=== PATIENT | female | born 1985 | race Caucasian/White ===

== ENCOUNTER 2020-03-09 13:41 | Observation (INO) | payer MEDICAID, SELFPAY ==
[2020-03-09 13:44] VITALS: BP 131/99; PULSE 96; RESP 15; TEMP 36.7; O2SAT 98; BMI 25.0
--- NOTE | 2020-03-09 13:59 | ED.VISSUMM ---
- ER Visit Summary Date of Service: 03/09/20 Chief Complaint: [Requesting detox from heroin] History of Present Illness: The patient is a 34 F [presents the emergency department requesting detox from heroin. Patient states that she has been using for the last 6 months. Patient last used this morning. Patient states that prior to 6 months ago she had been on Suboxone for about a year and a half. Patient states that she just cannot do it anymore and would like help. She denies feeling suicidal or homicidal. Denies recent illness other than when she withdraws from the heroin she feels hot and cold chills and sweats as well as gets nausea and diarrhea. Patient otherwise has no medical history.] Physical Examination: [HEENT-PERRLA, EOMI. Cranial nerves II through XII grossly intact. TMs clear. Mucous membranes moist. No adenopathy. Cardiovascular-regular rate and rhythm without murmur or ectopy Lungs-clear to auscultation, chest wall stable without crepitus or subcu emphysema Abdomen-normoactive bowel sounds, soft, nontender, no rebound or rigidity, no peritoneal signs. Extremities-intact ?4, normal range of motion, normal pulses. Patient is noted to have track gillis to upper and lower extremities. Several of the injection sites have surrounding erythema localized evidence of cellulitis. No definite abscess is noted.] Test Results: [CBC with differential obtained showed a white count 17.9, hemoglobin 10.6, hematocrit 33, platelets 280. Chemistries unremarkable. LFTs unremarkable. Urine tox screen ordered and pending.] Emergency Department Course and Treatment: [IV line was tablets. Patient was started on Unasyn 3 g IV.] Treatment Plan: [Admit] Disposition: [Admit] Impression: [Admit for request for detox from heroin Cellulitis bilateral upper extremities-localized] This note was generated with Taxifyation software. It may contain incorrect words, spelling, and punctuation that were not noted in review of the chart prior to signing
[2020-03-09 14:33] LABS: Absolute Neutrophil Count 16.2 X10^3/uL (2.0-7.7); Basophil# 0.04 X10^3/uL; Basophil% 0.2 % (0-1); Eosinophil# 0.03 X10^3/uL; Eosinophils% 0.2 % (0-5); Hematocrit 33.3 % (37-47); Hemoglobin 10.6 g/dL (12.0-15.0); Lymphocyte % 6.1 % (19-41); Mean Corp Hgb Conc 31.8 g/dL (32-36); Mean Corpuscular Hgb 26.5 pg (27.0-32.0); Mean Corpuscular Volume 83.3 fL (81-99); Mean Platelet Vol. 9.2 fl (6.2-12.0); Monocyte# 0.46 X10^3/uL; Monocyte% 2.6 % (0-10); NRBC Flagged by Analyzer 0 % (0-5); Neutrophil # 16.22 X10^3/uL (2.7-7.7); Neutrophil % 90.5 % (47-70); Platelet Count 280 K/mm3 (150-450); RBC Distribution Width CV 13.3 % (11.6-14.6); RBC Distribution Width SD 40.2 fl (35.1-43.9); White Blood Count 17.9 K/mm3 (4.4-11.0)
[2020-03-09] MEDS: 0.9% Normal Saline 1,000 ML 150 ML IV (14:34)
[2020-03-09 14:41] VITALS: RESP 16
[2020-03-09 14:48] LABS: ALB/GLOB Ratio 0.7 RATIO (0.9-2.4); AST(SGOT) 36 U/L (15-37); Alanine Aminotransfer ALT/SGPT 14 U/L (13-56); Albumin, Serum 3.2 g/dL (3.2-5.0); Alkaline Phosphatase 119 U/L (45-117); Anion Gap 6 (5-15); BUN 12 mg/dL (7-18); BUN/Creat Ratio 18.5 RATIO (10-20); Chloride 103 mmol/L (98-107); Creatinine, Serum 0.65 mg/dL (0.55-1.02); EST Glomerular Filtration Rate 112 mL/min (>60); Est Glom Filt Rate - Afr Amer 136 mL/min (>60); Estimated Creatinine Clearance 116.32 ml/min; Globulin 4.8 g/dL (2.2-4.2); Glucose 112 mg/dL (74-106); Potassium 3.9 mmol/L (3.5-5.1); Sodium Level 135 mmol/L (136-145)
[2020-03-09 15:00] VITALS: RESP 16
--- NOTE | 2020-03-09 15:03 | HP.PCM_ITS ---
Problem List (1) Acute opioid withdrawal Status: Acute (2) Nicotine withdrawal Status: Acute (3) Cellulitis Status: Acute Qualifiers: Site of cellulitis: extremity Site of cellulitis of extremity: upper extremity Laterality: unspecified laterality Qualified Code(s): L03.119 - Cellulitis of unspecified part of limb History of Present Illness Date of Admission: 03/09/20 Chief Complaint: Acute opioid withdrawal - 1 day The patient is a 34 year old F with past medical history of depression, who uses heroin 1 to 2 g a day comes in requesting for medical stabilization. Patient last used less than a gram of heroin around 10 AM of the day of admission. She complains of fatigue, feeling hot and cold, nauseous, abdominal cramps and feeling restless. She is feeling remorseful and wants to quit. Vitals the ED showed patient 98.1F, heart rate 96, blood pressure 131/99, respiratory rate was 15, SPO2 is 98% on room air. WBC count was 17.9, hemoglobin 10.6, platelet count 280, sodium 135, potassium 3.9,Chloride 103, bicarbonate 26, BUN 12, creatinine 0.65, glucose 112, LFTs unremarkable. 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 Denies: Fever, Weight Change Eyes: Denies: Blurred vision, Cataracts, Conjunctivae Inflammation, Pain, Redness, Vision Change HEENT: Denies: Difficulty Hearing, Difficulty Swallowing, Head Aches, Hearing Changes, Sinus Congestion, Sinus Drainage, Sore Throat Cardiovascular: Denies: Chest Pain, Claudication, Orthopnea, Palpitations Respiratory: Denies: Cough, Hemoptysis, Shortness of breath at rest, Shortness of breath upon exertion, Sputum production Gastrointestinal: Reports: Nausea. Denies: Abdominal Pain, Constipation, Dyspepsia, Hematemesis, Hematochezia, Melena, Vomiting Genitourinary: Denies: Dysuria Gynecological: Denies: Breast symptoms, Excessively long or heavy periods, Sexual concerns Musculoskeletal: Reports: Muscle pain. Denies: Joint Pain, Joint stiffness, Joint swelling, Joint Tenderness Skin: Denies: Pruritis, Rash, Wounds Neurological: Denies: Difficulty swallowing, Focal weakness, Numbness, Tingling Psychiatric: Denies: Anxiety, Depression, Homicidal Ideations, Suicidal Ideations Hematologic/ Lymphatic: Denies: Easy Bruising, Easy Bleeding VTE Information - Inpt Only VTE Present on Admission: No VTE Pharm Prophylaxis ordered?: Yes Patient Problems: Active and Suspected Problems Acute opioid withdrawal (Acute) Nicotine withdrawal (Acute) Cellulitis (Acute) - Physical Exam Vitals/I&O's: Vital Signs Temp Pulse Resp BP Pulse Ox 98.1 F 96 15 131/99 H 98 03/09/20 13:44 03/09/20 13:44 03/09/20 13:44 03/09/20 13:44 03/09/20 13:44 Oxygen Delivery Method Room Air Weight: 70.307 kg Body Mass Index (BMI) 25.0 General: Alert, Oriented x3, Cooperative, - - tearful, remorseful HEENT: Atraumatic, PERRLA, EOMI, Normocephalic Oral: Moist Mucosa Neck: Supple Lungs: Clear to auscultation, Normal air movement Cardiovascular: Regular rate, Regular Rhythm, Normal S1, Normal S2, No murmurs Abdomen: Bowel Sounds Present, Soft, Non Tender, Non-Distended, No Hepato- splenomegaly Extremities: No edema, - - erythema of her both hands, needle track gillis, few erythematous swelling on both feet, a few are fluctuant Skin: No rashes Musculoskeletal: No Tenderness to Palpation of Joints or Extremities Lymphatic: No Cervical, Supraclavicular, or Inguinal Adenopathy Neurological: Cranial nerves II-XII grossly intact, Neuro grossly intact Psych/Mental Status: Normal Affect, Appropriate Laboratory Results 03/09/20 14:15: Sodium 135 L, Potassium 3.9, Chloride 103, Carbon Dioxide 26.0, Anion Gap 6, BUN 12, Creatinine 0.65, Estim Creat Clear Calc 116.32, Est GFR (MDRD) Af Amer 136, Est GFR (MDRD) Non-Af 112, BUN/Creatinine Ratio 18.5, Glucose 112 H, Calcium 9.0, Total Bilirubin 0.50, AST 36, ALT 14, Alkaline Phosphatase 119 H, Total Protein 8.0, Albumin 3.2, Globulin 4.8 H, Albumin/Globulin Ratio 0.7 L 03/09/20 14:25: WBC 17.9 H, RBC 4.00 L, Hgb 10.6 L, Hct 33.3 L, MCV 83.3, MCH 26.5 L, MCHC 31.8 L, RDW Std Deviation 40.2, RDW Coeff of Kenneth 13.3, Plt Count 280, MPV 9.2, Immature Gran % (Auto) 0.400, Neut % (Auto) 90.5 H, Lymph % (Auto) 6.1 L, [place] % (Auto) 2.6, Eos % (Auto) 0.2, Baso % (Auto) 0.2, Absolute Neuts (auto) 16.2 H, Absolute Lymphs (auto) 1.10, Nucleated RBC % 0 03/09/20 14:25: Ethyl Alcohol Pending 03/09/20 14:25: Urine Opiates Screen Cancelled, Urine Methadone Screen Cancelled, Ur Barbiturates Screen Cancelled, Ur Phencyclidine Scrn Cancelled, Ur Amphetamines Screen Cancelled, U Methamphetamin-MDMA Cancelled, U Benzodiazepines Scrn Cancelled, Urine Cocaine Screen Cancelled, U Cannabinoids Screen Cancelled, Ur Drug Screen Comment Cancelled Current Medications Sodium Chloride () 1,000 mls @ 150 mls/hr IV .[id number] [facility] Last Admin: 03/09/20 14:34 Dose: 150 mls/hr Documented by: Assessment/Plan All Active Problems Acute opioid withdrawal (Acute) Nicotine withdrawal (Acute) Cellulitis (Acute) 1. Acute opioid withdrawal in a patient with heavy heroin use Would admit to the MedSurg floor, start on buprenorphine withdrawal protocol Social work consult 2. Nicotine dependence, will put on replacement 3. Cellulitis of hands and areas of legs and feet, mild, likely from IV injection No open areas. Started on IV Unasyn in the ED, will continue on Augmentin 4. Polysubstance use, advised to quit 5. DVT prophylaxis with early ambulation Inpatient E&M: [id number] Init Hosp L2
--- NOTE | 2020-03-09 15:10 | NURSING ---
MED SURG PAINTSIL DETOX FROMHEROIN, CELLULITIS
--- NOTE | 2020-03-09 15:31 | CM.ED ---
Social Work Consult: Substance Abuse Informant: Dr. Holland Met with patient in room. Introduced self and social work assistant role. Patient agreeable to speaking with this social work assistant. Patient mother, Sarah Petersen present and patient comfortable speaking openly with Sarah present. Patient tearful throughout conversation. Patient seeking medical management with withdrawal symptoms. Patient states substance of choice is Heroine. Patient states to have last used this morning. Patient denies any mental health history. Patient denies any suicidal thoughts/plans/intents or history of. Patient states to have an open Children Service case through [facility] and case folder is: Natalie Bravo ([phone]). Patient states to have an 14, 6, and 2 year old. Patient mother currently has children per decision with [facility]. Patient states history of IOP program after detox and this helped. Patient plans to follow up with IOP program after discharged from [facility] program. Active support provided. Telephone call to Mai Duggan. Voicemail left updated Mai on patient admission. PLAN: Admit to [facility]. CHERYL Lima
[2020-03-09 15:33] VITALS: BP 113/81; PULSE 87; RESP 18; TEMP 37; O2SAT 97
[2020-03-09 15:56] LABS: Amphetamine Urine VISTA NEGATIVE (<1000 ng/mL); Barbiturate Urine VISTA NEGATIVE (< 200 ng/mL); Benzodiazepine Urine VISTA NEGATIVE (< 200 ng/mL); Cocaine Urine VISTA NEGATIVE (< 300 ng/mL); Ecstacy Urine VISTA NEGATIVE (< 500 ng/mL); Methadone Urine VISTA NEGATIVE (< 300 ng/mL); PCP Urine VISTA NEGATIVE (< 25 ng/mL); THC Urine VISTA NEGATIVE (< 50 ng/mL); Vista UDS pH Range 6
[2020-03-09 16:08] VITALS: BMI 25.9
[2020-03-09 16:18] VITALS: BMI 25.8
[2020-03-09 16:50] VITALS: BP 128/72; PULSE 87; RESP 16; TEMP 36.8; O2SAT 100
--- NOTE | 2020-03-09 16:53 | NURSING ---
pt has not received recent immunization and unsure of when last ones were
[2020-03-09 17:54] LABS: Internal QC Validated? YES +Cl - CLEAR BKGD; Pregnancy, Urine Negative Negative
[2020-03-09] MEDS: Buprenorphine HCl 2 MG TAB.SUBL 4 MG SL (18:28)
[2020-03-09] MEDS: Methocarbamol 750 MG Tablet 1500 MG PO (18:28)
[2020-03-09] MEDS: hydrOXYzine PAM 25 MG Capsule 50 MG PO (18:28)
[2020-03-09 20:11] VITALS: BP 147/92; PULSE 78; RESP 16; TEMP 36.9; O2SAT 99
[2020-03-09] MEDS: Ibuprofen 600 MG Tablet PO (20:22)
[2020-03-09] MEDS: cloNIDine HCl 0.1 MG Tablet PO (20:22)
[2020-03-09] MEDS: Dicyclomine 10 MG Capsule 20 MG PO (20:23)
[2020-03-09] MEDS: Amox/Clavulanate 875 MG Tablet PO (22:15)
[2020-03-10 00:46] VITALS: BP 124/78; PULSE 65; RESP 16; TEMP 36.8; O2SAT 98
[2020-03-10] MEDS: Gabapentin 300 MG Capsule PO ×2 (00:52→09:55)
[2020-03-10] MEDS: Methocarbamol 750 MG Tablet 1500 MG PO ×2 (00:52→09:55)
[2020-03-10] MEDS: Buprenorphine HCl 2 MG TAB.SUBL 4 MG SL ×2 (00:53→09:54)
[2020-03-10 04:32] VITALS: BP 128/93; PULSE 68; RESP 16; TEMP 36.8; O2SAT 98
[2020-03-10] MEDS: cloNIDine HCl 0.1 MG Tablet PO ×2 (04:39→13:01)
[2020-03-10] MEDS: Dicyclomine 10 MG Capsule 20 MG PO ×2 (04:39→13:01)
[2020-03-10] MEDS: hydrOXYzine PAM 25 MG Capsule 50 MG PO ×2 (04:40→13:01)
[2020-03-10 05:37] LABS: Absolute Lymphocyte Count 0.99 X10^3/uL (0.83-4.51); Basophil# 0.02 X10^3/uL; Basophil% 0.2 % (0-1); Eosinophil# 0.03 X10^3/uL; Eosinophils% 0.3 % (0-5); Hematocrit 32.6 % (37-47); Hemoglobin 10.4 g/dL (12.0-15.0); Lymphocyte # 0.99 X10^3/ul (4.0); Lymphocyte % 8.5 % (19-41); Mean Corp Hgb Conc 31.9 g/dL (32-36); Mean Corpuscular Hgb 26.6 pg (27.0-32.0); Mean Corpuscular Volume 83.4 fL (81-99); Mean Platelet Vol. 9.4 fl (6.2-12.0); Monocyte# 0.51 X10^3/uL; Monocyte% 4.4 % (0-10); NRBC Flagged by Analyzer 0 % (0-5); Neutrophil # 10.04 X10^3/uL (2.7-7.7); Neutrophil % 86.1 % (47-70); Platelet Count 235 K/mm3 (150-450); RBC Distribution Width CV 13.3 % (11.6-14.6); RBC Distribution Width SD 40.3 fl (35.1-43.9); Red Blood Count 3.91 M/mm3 (4.2-5.4); White Blood Count 11.7 K/mm3 (4.4-11.0)
[2020-03-10 05:55] LABS: ALB/GLOB Ratio 0.8 RATIO (0.9-2.4); AST(SGOT) 10 U/L (15-37); Alanine Aminotransfer ALT/SGPT 12 U/L (13-56); Albumin, Serum 3.2 g/dL (3.2-5.0); Alkaline Phosphatase 107 U/L (45-117); Anion Gap 7 (5-15); BUN 6 mg/dL (7-18); BUN/Creat Ratio 12.8 RATIO (10-20); Chloride 108 mmol/L (98-107); Creatinine, Serum 0.47 mg/dL (0.55-1.02); EST Glomerular Filtration Rate 163 mL/min (>60); Est Glom Filt Rate - Afr Amer 197 mL/min (>60); Estimated Creatinine Clearance 160.87 ml/min; Globulin 3.9 g/dL (2.2-4.2); Glucose 106 mg/dL (74-106); Potassium 3.1 mmol/L (3.5-5.1); Protein, Total 7.1 g/dL (6.4-8.2); Sodium Level 143 mmol/L (136-145)
[2020-03-10 09:51] VITALS: BP 138/88; PULSE 73; RESP 16; TEMP 36.9; O2SAT 99
--- NOTE | 2020-03-10 09:51 | ADDICTION ---
This life underwriter met with patient in her room to complete ASAM and MSE assessments and to start discharge planning in preparation of patient's planned discharge later this week. Patient was alert and oriented x4 and presented with depressed mood and tearful affect. She participated appropriately to situation. She reported that she is currently engaged with [facility] in [place], [place] for IOP and plans to follow up with this agency following discharge from [facility]. This life underwriter will fax completed assessments and documentation to [facility].
[2020-03-10] MEDS: Sertraline 100 MG Tablet PO (09:54)
[2020-03-10] MEDS: Amox/Clavulanate 875 MG Tablet PO (09:54)
[2020-03-10] MEDS: Ibuprofen 600 MG Tablet PO (09:55)
[2020-03-10] MEDS: Acetaminophen 500 MG Tablet PO (13:00)
--- NOTE | 2020-03-10 15:36 | PN_ITS ---
Patient Problems: Active and Suspected Problems Acute opioid withdrawal (Acute) Nicotine withdrawal (Acute) Cellulitis (Acute) Subjective: Restless and would like to go home and take the Suboxone that she has at home. She lives about an hour away and both her mother and her sister refused to pick her up. Vitals/I&O's: Vital Signs Temp Pulse Resp BP Pulse Ox 98.4 F 73 16 138/88 H 99 03/10/20 09:51 03/10/20 09:51 03/10/20 09:51 03/10/20 09:51 03/10/20 09:51 Oxygen Delivery Method Room Air Weight: 160 lb 4.417 oz Body Mass Index (BMI) 25.8 Intake and Output for Last 24 Hours 03/08/20 03/09/20 03/10/20 23:59 23:59 23:59 Intake Total 1034.5 / 1334.5 790 / 790 Balance 1034.5 / 1334.5 790 / 790 General: Alert, Oriented x3, Cooperative, No apparent distress HEENT: Atraumatic, PERRLA, EOMI, Normocephalic Oral: Moist Mucosa Neck: Supple, No JVD Lungs: Clear to auscultation, Normal air movement, No rhonchi, No wheeze, No rales Abdomen: Soft, Non Tender, Non-Distended, No Hepato-splenomegaly Extremities: No edema, Capillary Refill Less than 3 Seconds Skin: - - Track gillis evident, some are erythematous Neurological: Neuro grossly intact, Sensory exam intact to light touch and pain Psych/Mental Status: Normal Affect, Appropriate Laboratory Results 03/09/20 15:18: Urine Opiates Screen NEGATIVE, Urine Methadone Screen NEGATIVE, Ur Barbiturates Screen NEGATIVE, Ur Phencyclidine Scrn NEGATIVE, Ur Amphetamines Screen NEGATIVE, U Methamphetamin-MDMA NEGATIVE, U Benzodiazepines Scrn NEGATIVE, Urine Cocaine Screen NEGATIVE, U Cannabinoids Screen NEGATIVE 03/09/20 15:18: Urine Test Negative 03/10/20 05:14: WBC 11.7 H, RBC 3.91 L, Hgb 10.4 L, Hct 32.6 L, MCV 83.4, MCH 26.6 L, MCHC 31.9 L, RDW Std Deviation 40.3, RDW Coeff of Kenneth 13.3, Plt Count 235, MPV 9.4, Immature Gran % (Auto) 0.500, Neut % (Auto) 86.1 H, Lymph % (Auto) 8.5 L, [place] % (Auto) 4.4, Eos % (Auto) 0.3, Baso % (Auto) 0.2, Absolute Neuts (auto) 10.0 H, Absolute Lymphs (auto) 0.99, Nucleated RBC % 0 03/10/20 05:14: Sodium 143, Potassium 3.1 L, Chloride 108 H, Carbon Dioxide 28.0, Anion Gap 7, BUN 6 L, Creatinine 0.47 L, Estim Creat Clear Calc 160.87, Est GFR (MDRD) Af Amer 197, Est GFR (MDRD) Non-Af 163, BUN/Creatinine Ratio 12.8, Glucose 106, Calcium 9.0, Total Bilirubin 0.40, AST 10 L, ALT 12 L, Alkaline Phosphatase 107, Total Protein 7.1, Albumin 3.2, Globulin 3.9, Albumin/Globulin Ratio 0.8 L Current Medications Acetaminophen (Tylenol) 500 mg PO Q4H PRN PRN PRN Reason: Temp > 100.4 F Last Admin: 03/10/20 13:00 Dose: 500 mg Documented by: Al Hydroxide/Mg Hydroxide (Mylanta Ii) 30 ml PO Q6H PRN PRN PRN Reason: dyspesia Amoxicillin/Clavulanate Potassium (Augmentin Tablet) 875 mg PO BID [facility] Last Admin: 03/10/20 09:54 Dose: 875 mg Documented by: Bisacodyl (Dulcolax) 10 mg RECTAL DAILY PRN PRN Reason: Constipation Buprenorphine HCl (Buprenorphine Hcl) 4 mg SL Q8H [facility]; Taper Stop: 03/12/20 16:59 Last Admin: 03/10/20 09:54 Dose: 4 mg Documented by: Clonidine (Catapres) 0.1 mg PO Q8H PRN PRN PRN Reason: RESTLESSNESS Last Admin: 03/10/20 13:01 Dose: 0.1 mg Documented by: Dicyclomine HCl (Bentyl) 20 mg PO Q6H PRN PRN PRN Reason: Abdominal Discomfort Last Admin: 03/10/20 13:01 Dose: 20 mg Documented by: Gabapentin (Neurontin) 300 mg PO Q8H PRN PRN PRN Reason: moderate to severe anxiety Last Admin: 03/10/20 09:55 Dose: 300 mg Documented by: Hydroxyzine Pamoate (Vistaril Pamoate Capsule) 50 mg PO Q6H PRN PRN PRN Reason: mild anxiety Last Admin: 03/10/20 13:01 Dose: 50 mg Documented by: Sodium Chloride () 250 mls @ 15 mls/hr IV .[id number] PRN PRN Reason: Saline Flush Ibuprofen (Motrin) 600 mg PO Q8H PRN PRN PRN Reason: Pain Score 1-10/10 Last Admin: 03/10/20 09:55 Dose: 600 mg Documented by: Loperamide HCl (Imodium) 2 mg PO Q4H PRN PRN PRN Reason: LOOSE STOOLS Methocarbamol (Methocarbamol) 1,500 mg PO Q6H PRN PRN PRN Reason: MUSCLE SPASM Last Admin: 03/10/20 09:55 Dose: 1,500 mg Documented by: Nicotine (Nicoderm Cq (Pbkc)) 21 mg TRANSDERM. DAILY [facility] Last Admin: 03/10/20 05:43 Dose: 21 mg Documented by: Nicotine Polacrilex (Rugby Nicotine (Pbkc)) 4 mg PO Q2H PRN PRN PRN Reason: Nicotine Craving Ondansetron HCl (Zofran) 8 mg PO Q8H PRN PRN PRN Reason: NAUSEA Senna (Senokot) 2 tablet PO QHS PRN PRN Reason: Constipation Sertraline HCl (Zoloft) 100 mg PO DAILY [facility] Last Admin: 03/10/20 09:54 Dose: 100 mg Documented by: Sodium Chloride () 10 - 40 ml IV UD PRN PRN Reason: SALINE FLUSH Trazodone HCl (Desyrel) 100 mg PO QHS PRN PRN PRN Reason: INSOMNIA Medical Necessity - Tobacco Use Smoking Status: Current every day smoker Tobacco Use: Cigarettes Assessment/Plan All Active Problems Acute opioid withdrawal (Acute) Nicotine withdrawal (Acute) Cellulitis (Acute) 1. Acute opiate withdrawal/tobacco abuse -She for started using Percocet for back surgery and transition to Suboxone, she had been on Suboxone for about a year and a half and then she started using heroin over the last 3 months -Continue with the opiate withdrawal protocol -Discussed cessation of tobacco and drugs -Continue with nicotine patch 2. Mild cellulitis -This is generally around her track gillis -Continue with p.o. Augmentin, leukocytosis improved from 17-11 DVT: Ambulation Inpatient E&M: 29985 Subs Hosp L2
--- NOTE | 2020-03-10 16:04 | CHAPLAIN ---
Type of Pastoral Visit _x__ Initial Visit ___ Follow-up Visit ___ On-call Visit ___ General Patient Visit ___ Spiritual Assessment ___ Family Conference ___ Bereavement ___ Rapid Response ___ Code Blue ___ Other (describe below) Pastoral Care Referral From _x__ Patient ___ Family ___ Nurse ___ Physician ___ Tire Layer ___ Senior Accountant Analyst ___ Other (describe below) Sacrament/Intervention ___ Active listening ___ Anointing ___ Temple ___ Bereavement ___ Communion ___ Cece exploration ___ ___ Life review ___ Prayer ___ Reconciliation ___ Sacrament of Sick _x__ Supportive presence ___ Wedding ___ Other (describe below) Pastoral Comments patient is awake but states that she is not feeling well and not up to a visit; offer of support given and pt acknowledged that it may be welcome at another time
--- NOTE | 2020-03-10 16:17 | NURSING ---
into pt's room at Jesika RN's request as pt requesting to leave AMA after her and Dr. Colón had already talked to pt. Pt had already broke into tub and found to be on cellphone. requesting AMA papers. Papers signed. no iv note. nicotine patch removed at pt's request. pt getting dressed.
--- NOTE | 2020-03-10 18:17 | NURSING ---
late entry 1300... entered room per pt request.. pt states that she wants to leave. informed her that if she leave it would be AMA. due to she has not been here 24hrs yet and she would finish program on sunday. pt states still wants to go but doesnt know who will pick her up. informed her that if i open her belongings tub she would have to leave AMA. pt asked if she could use the phone and if her mom wont come get her then she would stay. did let pt talk to her mom and this nurse also talked with mom. Mom refused to come get pt because mom wants pt to finish program. spoke with pt some more about talking with the doctor to see if there was anything else we can get her. pt states i have felt like shit all night and all today informed her that we have been giving her the meds to help with her symptoms and that we could call and see if doctor could prescribe anything. around 1400 Dr. rosales came and spoke to the pt. pt agreed to stay till tomorrow 03/11. by 1600 pt stated that she cant stay any longer. by time Cherelle BRIONES went into room with AMA papers pt had already broke into her belongings tote and got her phone out. pt dressed and then left the floor @ [id number]
== END 2020-03-10 16:27 | disposition left against medical advice (07) ==
LOC: ED 14:54 → MS3 03-10 07:31
PROVIDERS: Admitting Provider Internal Medicine; Emergency Provider Emergency Medicine; Visit Provider Family Medicine
DX: F11.23 Opioid dependence with withdrawal (principal); F17.210 Nicotine dependence, cigarettes, uncomplicated; L03.114 Cellulitis of left upper limb; L03.113 Cellulitis of right upper limb; F32.9 Major depressive disorder, single episode, unspecified; Z79.899 Other long term (current) drug therapy
CPT/HCPCS: 36415; 80053; 80307; 80320; 81025; 85025; 97802; 99285; 99406; H0012; J7030; A4216; G0480; J0295